=== PATIENT | female | born 1990 | race Caucasian/White ===

== ENCOUNTER 2017-08-26 21:30 | Emergency (ER) | payer SELFPAY ==
[~2017-08-26] VITALS: Ht 154.9 cm; Wt 45.0 kg
[2017-08-26] MEDS ORDERED: KETOROLAC 60MG/2ML VIAL IM ONE (23:00)
[2017-08-26 23:49] VITALS: BP 103/72
== END 2017-08-27 00:20 | disposition home or self-care (01) ==
LOC: ER 21:52
DX: S30.1XXA Contusion of abdominal wall, initial encounter (principal); S40.012A Contusion of left shoulder, initial encounter; S40.022A Contusion of left upper arm, initial encounter; Z87.828 Personal history of other (healed) physical injury and trauma; V43.52XA Car driver injured in collision with other type car in traffic accident, initial encounter; Y93.89 Activity, other specified; Y92.488 Other paved roadways as the place of occurrence of the external cause
CPT/HCPCS: 71101; 73030; 81025; 96372; 99284; J1885; Z7610